=== PATIENT | female | born 1930 | race Two or more races ===

== ENCOUNTER 2017-08-16 14:20 | Observation (INO) | payer MEDICARE ==
[~2017-08-16] VITALS: Ht 154.9 cm; Wt 70.4 kg
[2017-08-16] MEDS ORDERED: PENVK500 PO (15:21)
[2017-08-16] MEDS ORDERED: ASPI81CH PO (15:48)
[2017-08-16] MEDS ORDERED: ATOM10 PO (15:48)
[2017-08-16] MEDS ORDERED: ATOR10 PO (20:49)
[2017-08-16] MEDS ORDERED: DORZOPSO BOTHEYES ×2 (20:52→20:53)
[2017-08-17] MEDS ORDERED: TIMOLOL MALEATE5 ML BOTHEYES (05:10)
[2017-08-17] MEDS ORDERED: ACET325 PO (13:40)
== END 2017-08-17 14:21 | disposition home or self-care (01) ==
LOC: ER 14:20 → MEDS 14:21
DX: S06.6X0A Traumatic subarachnoid hemorrhage without loss of consciousness, initial encounter (principal); W18.30XA Fall on same level, unspecified, initial encounter; E78.5 Hyperlipidemia, unspecified; Z98.890 Other specified postprocedural states; Z79.82 Long term (current) use of aspirin
CPT/HCPCS: 36415; 70450; 70486; 90471; 90714; 93005; 93010; 99285; G0378

== ENCOUNTER 2017-08-19 06:56 | Emergency (ER) | payer MEDICARE ==
[~2017-08-19] VITALS: Ht 154.9 cm; Wt 71.2 kg
[~2017-08-19 06:56] MED LIST: ACET325 PO; ASPI81CH PO; ATOM10 PO; ATOR10 PO; DORZOPSO BOTHEYES; PENVK500 PO; TIMOLOL MALEATE5 ML BOTHEYES
[2017-08-19] MEDS ORDERED: ASPI81CH (07:16)
[2017-08-19] MEDS ORDERED: ATOR10 (07:16)
[2017-08-19 07:45] LABS: BASOPHILS ABSOLUTE AUTO 0.04 K/mm3 (0.00-0.23); BASOPHILS PERCENT AUTO 1 % (0-2); EOSINOPHILS ABSOLUTE AUTO 0.13 K/mm3 (0.00-0.68); EOSINOPHILS PERCENT AUTO 2 % (0-6); Hematocrit 36.1 % (33.0-51.0); Hemoglobin 11.4 g/dL (11.5-16.0); IMMATURE GRAN ABSOLUTE AUTO 0.02 K/mm3 (0.00-0.10); IMMATURE GRAN PERCENT AUTO 0 % (0-1); LYMPHOCYTES ABSOLUTE AUTO 0.99 K/mm3 (0.84-5.20); LYMPHOCYTES PERCENT AUTO 18 % (21-46); MONOCYTES ABSOLUTE AUTO 0.46 K/mm3 (0.16-1.47); MONOCYTES PERCENT AUTO 9 % (4-13); Mean Corpuscular HGB 27.3 pg (26.0-34.0); Mean Corpuscular HGB Conc 31.6 g/dL (31.5-36.5); Mean Corpuscular Volume 87 fL (80-100); Mean Platelet Volume 9.7 fL (9.1-12.4); NEUTROPHILS ABSOLUTE AUTO 3.73 K/mm3 (1.96-9.15); NEUTROPHILS PERCENT AUTO 70 % (41-73); Platelet Count 185 K/mm3 (150-400); RDW Standard Deviation 43.6 fL (35.1-46.3); Red Blood Cell Count 4.17 M/mm3 (3.80-5.20); White Blood Cell Count 5.37 K/mm3 (4.00-11.30)
[2017-08-19 08:01] LABS: International Normalized Ratio 0.99; Prothrombin Time Results 10.3 Sec (9.7-11.5)
[2017-08-19 08:04] LABS: Anion Gap 5 mmol/L (6-16); Blood Urea Nitrogen 11 mg/dL (8-24); Bun/Creatinine Ratio 17.4 (12.0-20.0); CO2, Blood 30 mmol/L (21-32); Calcium, Blood 8.6 mg/dL (8.5-10.1); Chloride, Blood 104 mmol/L (98-108); Creatinine, Blood 0.63 mg/dL (0.40-1.00); Glomerular Filtration Rate >60 (60-); Glucose, Blood 104 mg/dL (70-99); Sodium, Blood 139 mmol/L (136-145); Troponin I <0.015 ng/mL (0.000-0.040)
[2017-08-19] MEDS ORDERED: Pepcid20 MG PO (08:39)
== END 2017-08-19 08:45 | disposition home or self-care (01) ==
LOC: ER 06:56
PROVIDERS: Emergency Medicine
DX: K29.00 Acute gastritis without bleeding (principal); R07.89 Other chest pain; S06.6X9D Traumatic subarachnoid hemorrhage with loss of consciousness of unspecified duration, subsequent encounter; W19.XXXD Unspecified fall, subsequent encounter; Z79.82 Long term (current) use of aspirin; Z79.899 Other long term (current) drug therapy
CPT/HCPCS: 36415; 71046; 80048; 84484; 85025; 85610; 93005; 93010; 96374; 99284; J3490; J7030